=== PATIENT | female | born 1940 | race Caucasian/White ===

== ENCOUNTER 2021-12-15 20:57 | Inpatient (IN) | payer MEDICARE, MEDICAID, SELFPAY ==
[2021-12-15 20:58] VITALS: BP 155/52; PULSE 66; RESP 18; TEMP 36.9; O2SAT 97; BMI 19.5
[2021-12-15 22:08] LABS: Absolute Lymphocyte Count 2.51 X10^3/uL (0.83-4.51); Absolute Neutrophil Count 8.9 X10^3/uL (2.0-7.7); Basophil# 0.05 X10^3/uL; Basophil% 0.4 % (0-1); Eosinophil# 0.09 X10^3/uL; Eosinophils% 0.7 % (0-5); Hematocrit 34.1 % (37-47); Hemoglobin 11.2 g/dL (12.0-15.0); Lymphocyte # 2.51 X10^3/ul (0.83-4.51); Lymphocyte % 20.3 % (19-41); Mean Corp Hgb Conc 32.8 g/dL (32-36); Mean Corpuscular Hgb 31.4 pg (27.0-32.0); Mean Corpuscular Volume 95.5 fL (81-99); Mean Platelet Vol. 9.9 fl (6.2-12.0); Monocyte# 0.79 X10^3/uL; Monocyte% 6.4 % (0-10); NRBC Flagged by Analyzer 0 % (0-5); Neutrophil # 8.85 X10^3/uL (2.7-7.7); Neutrophil % 71.6 % (47-70); Platelet Count 293 K/mm3 (150-450); RBC Distribution Width CV 13.2 % (11.6-14.6); Red Blood Count 3.57 M/mm3 (4.2-5.4); White Blood Count 12.4 K/mm3 (4.4-11.0)
[2021-12-15 22:20] LABS: Anion Gap 10 (5-15); BUN 39 mg/dL (7-18); BUN/Creat Ratio 20.6 RATIO (10-20); Calcium,Total 9.4 mg/dL (8.5-10.1); Chloride 104 mmol/L (98-107); Creatinine, Serum 1.89 mg/dL (0.55-1.02); EST Glomerular Filtration Rate 27 mL/min (>60); Est Glom Filt Rate - Afr Amer 33 mL/min (>60); Estimated Creatinine Clearance 18.78 ml/min; Glucose 93 mg/dL (74-106); Potassium 4.6 mmol/L (3.5-5.1); Sodium Level 136 mmol/L (136-145)
[2021-12-15] MEDS: 0.9% Normal Saline 1,000 ML 1000 ML IV (22:30)
[2021-12-15 22:31] LABS: Mucous, Urine 0 SEEN /hpf (<or=2+)
[2021-12-15 22:34] VITALS: BP 139/51; PULSE 68; RESP 18; O2SAT 98
[2021-12-15 22:44] LABS: Color, Urine Yellow (Yellow); Glucose, Dipstick Normal (Normal); Ketone-Dipstick 15 mg/dl (Negative); Leukocyte Esterase-Dipstick 500 /ul (Negative); Nitrite-Dipstick Negative (Negative); Occult Blood-Urine 150 /ul (Negative); Protein-Dipstick 30 mg/dl (Negative); Urine Bilirubin Dipstick Negative (Negative); Urine Clarity Clear (Clear); Urine Urobilinogen Normal (Normal)
[2021-12-15 22:58] LABS: Bacteria RARE /hpf (None Seen); Red Blood Cells-Urine 5-10 SEEN /hpf (0-5); Squamous Epithelial Cells - UA 0-5 SEEN /hpf (5-10); White Blood Cells 25-50 SEEN /hpf (0-5)
[2021-12-15 22:59] LABS: Fine Granular Cast- Urine 0-5 SEEN /lpf (0-5); Hyaline Cast 5-10 SEEN /lpf (0-5)
[2021-12-15 23:00] VITALS: BP 143/58; PULSE 79; RESP 18; O2SAT 96
--- NOTE | 2021-12-15 23:03 | CT_ITS ---
EXAM: CT HEAD WITHOUT INTRAVENOUS CONTRAST CLINICAL INDICATION: Acute altered mental status TECHNIQUE: Multiple axial images were obtained of the head without intravenous contrast. This CT exam was performed using one or more of the following dose reduction techniques: automated exposure control, adjustment of the mA and/or kV according to patient size, and/or use of iterative reconstruction technique. This report was created using [employer] report generation technology. RADIATION DOSE: CTDIvol = 47.06 mGy, DLP = 872.68 mGy-cm. COMPARISON: None. FINDINGS: BRAIN AND EXTRA-AXIAL SPACES: Mild generalized atrophy. Mild low density bilaterally in the deep white matter. No intra- or extra-axial hemorrhage. No evidence of acute infarct. No intracranial mass or mass effect. There is preservation of the mccormack/white matter interface. Posterior fossa structures are unremarkable. No hydrocephalus. Basal cisterns are patent. BONES/JOINTS: Unremarkable. No discrete lytic or blastic abnormalities. SINUSES: Unremarkable as visualized. Clear. MASTOID AIR CELLS: Unremarkable. Clear. ORBITS: Visualized globes, extraocular muscles, optic nerves and retrobulbar fat appear unremarkable. CT/Brain/Head without Contrast IMPRESSION: Mild generalized atrophy. Mild low density bilaterally in the deep white matter. This likely represents small vessel ischemic changes in the deep white matter. Electronically Signed: Luciano Broderick MD at 0:18 EDT ,
[2021-12-15] MEDS: Ceftriaxone 1 GM/50 ML BAG IV (23:18)
--- NOTE | 2021-12-15 23:18 | EX.ED.DYSGE1 ---
HPI History of Present Illness Chief Complaint: Alt LOC Detail of Chief Complaint: Confusion daughter concerned UTI Informant: family and other (Nursing staff) Onset/Context/Timing Onset: - (Unknown) Context: - (Unknown) Timing: - (Unknown) Quality: Unable to determine Location: Not applicable Maximum Severity: Moderate Worsened by: Unknown Relieved by: Unknown Associated Symptoms Associated Symptoms: Unable to determine Narrative Narrative: Patient is an elderly woman with history of recurrent urinary tract infection who presents because of altered mental status. She is disoriented. Some of her answers are not related to what is asked. She believes it is April. She stated the year is 2022. When asked why she is here she stated I do not know . Based on medication patient has history of Parkinson's disease. GERD versus gastritis Prior similar symptoms: Yes (Due to urinary tract infection per daughter) Recent Illness/Hospitalization: No PFSH PFSH Medical History Atherosclerotic heart disease of [place] coronary artery with unspecified angina pectoris Constipation COVID-19 Depression Essential hypertension Gastro-esophageal reflux disease without esophagitis Hyperlipemia Parkinson disease Rheumatoid arthritis Home Medications acetaminophen 325 mg tablet (Tylenol) 650 mg PO Q4H PRN Pain 12/15/21 [History Last Taken Unknown] aspirin 81 mg tablet 81 mg PO DAILY 12/15/21 [History Last Taken Unknown] bisacodyl 5 mg rectal suppository mg MS 12/15/21 [History Last Taken Unknown] carbidopa 25 mg-levodopa 100 mg tablet 0.5 tab PO QHS 12/15/21 [History Last Taken Unknown] carbidopa 25 mg-levodopa 100 mg tablet 1 tab PO QHS 12/15/21 [History Last Taken Unknown] dextromethorphan-guaifenesin 10 mg-100 mg/5 mL oral syrup 10 ml PO Q4H PRN Cough 12/15/21 [History Last Taken Unknown] famotidine 20 mg tablet (Pepcid) 20 mg PO QHS 12/15/21 [History Last Taken Unknown] hydrocodone-acetaminophen 5-325mg 5mg-325mg 1 tab PO Q6H PRN Pain 12/15/21 [History Last Taken Unknown] mirtazapine 15 mg tablet 15 mg PO QHS 12/15/21 [History Last Taken Unknown] ondansetron HCl 4 mg tablet 4 mg PO Q4H PRN PRN Nausea 12/15/21 [History Last Taken Unknown] polyethylene glycol 3350 17 gram oral powder packet (Miralax) 17 g PO DAILY 12/15/21 [History Last Taken Unknown] saliva substitute combo no.9 (Biotene Dry Mouth Oral Rinse) 15 ml mucous membrane BID 12/15/21 [History Last Taken Unknown] sennosides 8.6 mg tablet (senna) 8.6 mg PO BID 12/15/21 [History Last Taken Unknown] Allergy/AdvReac Type Severity Reaction Status Date / Time adhesive tape Allergy PT UNSURE Verified 12/15/21 21:06 OF REACTION nickel Allergy PT UNSURE Verified 12/15/21 21:06 OF REACTION Penicillins Allergy PT UNSURE Verified 12/15/21 21:06 OF REACTION Family History unable to obtain unable to obtain Surgical History unable to obtain unable to obtain Social History (Updated 12/15/21 @ 23:[address] Ruben Ruiz MD) housing: [facility] Smoking Status: Former smoker substance use type: unknown ROS ROS ED Review of Systems ROS Unobtainable: due to mental status EXAM Physical Exam Const Vital Signs: 12/15/21 20:58 12/15/21 22:34 12/15/21 23:00 Temperature 98.4 F Temperature Source Oral Pulse Rate 66 68 79 Respiratory Rate 18 18 18 Blood Pressure 155/52 H 139/51 H 143/58 H Blood Pressure Mean 86 80 86 Pulse Ox 97 98 96 Oxygen Delivery Method Room Air Room Air Room Air 12/16/21 00:00 Temperature Temperature Source Pulse Rate 86 Respiratory Rate 18 Blood Pressure 125/71 H Blood Pressure Mean 89 Pulse Ox 97 Oxygen Delivery Method Room Air Positive well developed, cachectic, contractures and unkempt General Appearance ED: unkempt, well developed, cachectic, contractures and pallor; Negative for cyanotic, diaphoretic or NAD Nutritional Appearance: cachectic HEENT Reports dry mucous membranes HEENT Narrative: Head is atraumatic normocephalic. Ears normal. TMs normal. Nares patent. Uvula is midline. There is no erythema or exudate the posterior pharynx. Mouth ED: Yes dry mucous membranes Mouth: dry mucous membranes Eyes PERRL and EOMs intact bilaterally General Eye ED: Negative for pale conjunctiva or scleral icterus Neck no lymphadenopathy and no JVD Chest Wall inspection of chest normal and palpation of chest normal Resp normal respiratory effort and clear to auscultation bilaterally Cardio regular rate, regular rhythm, S1 normal heart sound, S2 normal heart sound and no murmurs GI normal to inspection, nondistended, normoactive bowel sounds, non-tender and non-distended; Negative for hepatosplenomegaly Back/Spine no CVA tenderness Back/Spine Narrative: Limited range of motion slight kyphosis Extremity Negative for normal to inspection Extremity Narrative: Contractures with lymphedema and bruising Neuro No oriented x3 and CN's II-XII intact bilaterally Neuro Narrative: Unable to assess for motor strength. Patient flinches or grimaces to pinprick upper and lower extremity Sensorium / Orientation: orientation impaired; Negative for alert Psych Negative for mental status grossly normal Appearance: unkempt Skin no rashes or lesions noted Skin Narrative: Bruising noted. There is no sacral decubiti. There is redness in the gluteal area and sacral area. General Skin Exam: pallor; Negative for jaundice MDM MDM MDM Narrative Medical decision making narrative: With prior history of UTI altered mental status concern patient may have urinary tract infection. Need to rule out metabolic cause clinically she appears dehydrated. Since patient not tachypneic, is not hypoxic and has normal auscultatory findings on lung exam x-ray was not obtained. Because of the persistent altered mental status and no significant metabolic abnormality and not a clear cut diagnosis of urinary tract infection a CT of the head was obtained to rule out intracranial process. At 0012 was informed by nurse that patient had a significant Addis vaginal/vulvar infection. Since patient cannot take p.o. meds because of her altered mental status and concern for aspiration she was given a dose of IV Diflucan. Lab Data Attestation: I reviewed the patient's lab results. Lab results narrative: White count is elevated with shift. There is no bandemia. BUN and creatinine are elevated at 39 and 1.89. There is no prior labs for comparison. GFR is 27. Urine reveals a specific gravity of 1.020 with positive ketones, occult blood leukoesterase and negative nitrites. There is evidence of pyuria with 25-50 WBCs and rare bacteria. The specimen was a straight cath and is not contaminated. There is hilar casts noted. Labs: Laboratory Results - last 24 hr 12/15/21 12/15/21 12/15/21 21:14 21:14 22:30 WBC 12.4 H RBC 3.57 L Hgb 11.2 L Hct 34.1 L MCV 95.5 MCH 31.4 MCHC 32.8 RDW Std Deviation 46.0 H RDW Coeff of Linda 13.2 Plt Count 293 MPV 9.9 Immature Gran % (Auto) 0.600 Neut % (Auto) 71.6 H Lymph % (Auto) 20.3 [place] % (Auto) 6.4 Eos % (Auto) 0.7 Baso % (Auto) 0.4 Absolute Neuts (auto) 8.9 H Absolute Lymphs (auto) 2.51 Nucleated RBC % 0 Sodium 136 Potassium 4.6 Chloride 104 Carbon Dioxide 22.0 Anion Gap 10 BUN 39 H Creatinine 1.89 H Estim Creat Clear Calc 18.78 Est GFR (MDRD) Af Amer 33 L Est GFR (MDRD) Non-Af 27 L BUN/Creatinine Ratio 20.6 H Glucose 93 Calcium 9.4 Urine Color Yellow Urine Clarity Clear Urine pH 5.0 Ur Specific [place] 1.020 Urine Protein 30 H Urine Glucose (UA) Normal Urine Ketones 15 H Urine Occult Blood 150 H Urine Nitrite Negative Urine Bilirubin Negative Urine Urobilinogen Normal Ur Leukocyte Esterase 500 H Urine RBC 5-10 SEEN Urine WBC 25-50 SEEN Ur Squamous Epith Cells 0-5 SEEN Urine Bacteria RARE Hyaline Casts 5-10 SEEN Fine Granular Casts 0-5 SEEN Urine Mucus 0 SEEN Radiography Diagnostic Testing: Clinical Impression(s) from Imaging Studies Brain CT 12/15/21 23:03 IMPRESSION: Mild generalized atrophy. Mild low density bilaterally in the deep white matter. This likely represents small vessel ischemic changes in the deep white matter. Electronically Signed: Luciano Broderick MD at 0:18 EDT , CT of the head per my read reveals small vessel white matter disease. There is no acute stroke or intracranial bleed. Awaiting formal read by radiologist. The report by radiologist was read. Agrees there is no abnormality that would explain patient's altered mental status. Discharge Plan Dx/Rx/DC Orders Clinical Impression: Encephalopathy acute, Acute UTI, Addis infection Disposition Disposition: Acute Care Hospital [facility]
[2021-12-16] VITALS (9 sets, daily range): BP systolic 111–153; BP diastolic 51–85; PULSE 59–86; RESP 16–20; TEMP 36.2–37.2; O2SAT 97–100; BMI 17.8
--- NOTE | 2021-12-16 01:09 | PCM.HP.STD ---
HPI - General General Date of Admission: 12/16/21 Date of Service: 12/16/21 Chief Complaint: Altered mental status HPI Narrative KEYSHAWN CERVANTES, is a 80 F with a significant history of Parkinson disease who lives at a long term and was brought to the emergency department because of altered mental status. History was taken from emergency department doctor and from patient's daughter (Vidya Sanchez [phone] who is a nurse) because patient is confused. However patient could states that she is at a hospital because of UTI. Reportedly patient has had multiple UTIs and the facilities that she lives at was planning on starting her on a prophylactic Macrobid. Reportedly patient has had progressively worsening altered mental status for the past 4 to 5 days and per her daughter when patient gets UTI she gets confused. 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 [facility] Medical History Atherosclerotic heart disease of [place] coronary artery with unspecified angina pectoris Constipation COVID-19 Depression Essential hypertension Gastro-esophageal reflux disease without esophagitis Hyperlipemia Parkinson disease Rheumatoid arthritis Home Medications acetaminophen 325 mg tablet (Tylenol) 650 mg PO Q4H PRN Pain 12/15/21 [History Last Taken Unknown] aspirin 81 mg tablet 81 mg PO DAILY heart health 12/15/21 [History Last Taken Unknown] bisacodyl 5 mg rectal suppository 5 mg [place] DAILY PRN Constipation 12/15/21 [History Last Taken Unknown] carbidopa 25 mg-levodopa 100 mg tablet 0.5 tab PO QHS parkinson's 12/15/21 [History Last Taken Unknown] carbidopa 25 mg-levodopa 100 mg tablet 1 tab PO 1300 parkinson's 12/15/21 [History Last Taken Unknown] dextromethorphan-guaifenesin 10 mg-100 mg/5 mL oral syrup 10 ml PO Q4H PRN Cough 12/15/21 [History Last Taken Unknown] famotidine 20 mg tablet (Pepcid) 20 mg PO QHS GERD 12/15/21 [History Last Taken Unknown] hydrocodone-acetaminophen 5-325mg 5mg-325mg 1 tab PO Q6H PRN Pain 12/15/21 [History Last Taken Unknown] mirtazapine 15 mg tablet 22.5 mg PO QHS depression 12/15/21 [History Last Taken Unknown] ondansetron HCl 4 mg tablet 4 mg PO Q4H PRN PRN Nausea 12/15/21 [History Last Taken Unknown] polyethylene glycol 3350 17 gram oral powder packet (Miralax) 17 g PO DAILY constipation 12/15/21 [History Last Taken Unknown] saliva substitute combo no.9 (Biotene Dry Mouth Oral Rinse) 15 ml mucous membrane BID dry mouth 12/15/21 [History Last Taken Unknown] sennosides 8.6 mg tablet (senna) 8.6 mg PO BID constipation 12/15/21 [History Last Taken Unknown] Lactobacillus acidophilus 1,000 mmu cells PO BID GERD 12/16/21 [History Last Taken Unknown] carbidopa 25 mg-levodopa 100 mg tablet 1 tab PO 1700 parkinson's 12/16/21 [History Last Taken Unknown] carbidopa 25 mg-levodopa 100 mg tablet 2 tab PO 0900 parkinsons 12/16/21 [History Last Taken Unknown] multivitamin 1 tab PO DAILY supplement 12/16/21 [History Last Taken Unknown] Allergy/AdvReac Type Severity Reaction Status Date / Time adhesive tape Allergy PT UNSURE Verified 12/15/21 21:06 OF REACTION nickel Allergy PT UNSURE Verified 12/15/21 21:06 OF REACTION Penicillins Allergy PT UNSURE Verified 12/15/21 21:06 OF REACTION Family History Other Hearing loss Rheumatoid arthritis Family History unable to obtain Surgical History H/O mastectomy History of ear surgery History of knee replacement Surgical History unable to obtain Social History housing: long term Smoking Status: Former smoker substance use type: unknown ROS ROS Narrative Pertinent positives and pertinent negatives that could be provided by patient's family is as noted in HPI. All other systems were reviewed patient's family did not know or they were negative. Vital Signs Vital Signs Vital Signs: 12/15/21 20:58 12/15/21 22:34 12/15/21 23:00 Temperature 98.4 F Temperature Source Oral Pulse Rate 66 68 79 Respiratory Rate 18 18 18 Blood Pressure 155/52 H 139/51 H 143/58 H Blood Pressure Mean 86 80 86 Pulse Ox 97 98 96 Oxygen Delivery Method Room Air Room Air Room Air 12/16/21 00:00 Temperature Temperature Source Pulse Rate 86 Respiratory Rate 18 Blood Pressure 125/71 H Blood Pressure Mean 89 Pulse Ox 97 Oxygen Delivery Method Room Air Weight Weight: 50.1 kg Body Mass Index (BMI) 19.5 Physical Exam Narrative Physical exam: General: Elderly frail looking female Head: Normocephalic, atraumatic, no tenderness Eyes: Does not fully open eyes for examination ENT, no trauma, moist mucous membranes, no rhinorrhea Neck: Nontender, full range of motion CVS: Regular rate and rhythm. S1-S2 present. No murmur, gallop or rub. Respiratory : clear to auscultation bilaterally, chest wall nontender, no wheezing Abdomen: Soft, nontender, nondistended, normal bowel sounds, no masses : Erythematous groin area Back: Nontender, no CVA tenderness, no midline spinal tenderness Extremities: Nontender full range of motion, no trauma Skin: Erythematous sacrococcygeal area. Normal color Neuro: Alert, knows the year. Patient stated that it was November instead of December. Murmuring. Psychiatry: Normal mood. Normal affect. Results Lab / Micro Data Result Diagrams: 12/15/21 21:14 12/15/21 21:14 Labs: Laboratory Results - last 24 hr 12/15/21 21:14: WBC 12.4 H, RBC 3.57 L, Hgb 11.2 L, Hct 34.1 L, MCV 95.5, MCH 31.4, MCHC 32.8, RDW Std Deviation 46.0 H, RDW Coeff of Linda 13.2, Plt Count 293, MPV 9.9, Immature Gran % (Auto) 0.600, Neut % (Auto) 71.6 H, Lymph % (Auto) 20.3, [place] % (Auto) 6.4, Eos % (Auto) 0.7, Baso % (Auto) 0.4, Absolute Neuts (auto) 8.9 H, Absolute Lymphs (auto) 2.51, Nucleated RBC % 0 12/15/21 21:14: Sodium 136, Potassium 4.6, Chloride 104, Carbon Dioxide 22.0, Anion Gap 10, BUN 39 H, Creatinine 1.89 H, Estim Creat Clear Calc 18.78, Est GFR (MDRD) Af Amer 33 L, Est GFR (MDRD) Non-Af 27 L, BUN/Creatinine Ratio 20.6 H, Glucose 93, Calcium 9.4 12/15/21 22:30: Urine Color Yellow, Urine Clarity Clear, Urine pH 5.0, Ur Specific [place] 1.020, Urine Protein 30 H, Urine Glucose (UA) Normal, Urine Ketones 15 H, Urine Occult Blood 150 H, Urine Nitrite Negative, Urine Bilirubin Negative, Urine Urobilinogen Normal, Ur Leukocyte Esterase 500 H, Urine RBC 5-10 SEEN, Urine WBC 25-50 SEEN, Ur Squamous Epith Cells 0-5 SEEN, Urine Bacteria RARE, Hyaline Casts 5-10 SEEN, Fine Granular Casts 0-5 SEEN, Urine Mucus 0 SEEN Radiology Impression Brain CT 12/15/21 23:03 IMPRESSION: Mild generalized atrophy. Mild low density bilaterally in the deep white matter. This likely represents small vessel ischemic changes in the deep white matter. Electronically Signed: Luciano Broderick MD at 0:18 EDT , Assessment & Plan Assessment/Plan (1) Encephalopathy acute: (2) Acute UTI: (3) Addis infection: PLAN: Plan Acute infectious encephalopathy from UTI Brain CT was visualized and independently interpreted. No acute process seen. I agree with radiologist interpretation. Urinalysis reviewed showed urine occult blood; urine leukocyte esterase of 500; reevaluate urine bacteria. Urine WBC of 25-50; normal squamous epithelial cells. CBC showed a white count of 12.4 with neutrophilia of 71.6%. Trend CBC. No other SIRS criteria except leukocytosis as above. qSOFA of 1 (encephalopathy); sepsis ruled out. Hold all p.o. home medication secondary to encephalopathy. Home p.o. Pepcid changed to IV. With reported MRSA in home urine we will start patient on vancomycin. Unclear why reportedly patient was on Invanz at the long term. Order to obtain records of urine culture and blood culture which reportedly was ordered at the long term. Follow urine culture ordered in the emergency department. JAVED on CKD stage IIIa. Her creatinine on presentation was 1.89. BUN is 39. BUN over creatinine is 20.6. Likely prerenal Review of community records shows that her creatinine on 03/17/2021 was 1.4. BUN was 30. GFR calculated was 36. Also review of Record showed that her creatinine on 03/18/2021 was 1.0. BUN was 36. Calculated GFR was 53. Further review of community records show that on 03/19/2021 her creatinine was 1.0. BUN was 30 and GFR calculated was 53. IV hydration ordered. Avoid nephrotoxins. Trend BMP Addis infection of groin area Diflucan IV given the emergency department. Nystatin powder ordered. Charges/Coding Visit Charges Inpatient E&M: 17965 Init Hosp L3
--- NOTE | 2021-12-16 02:39 | NURSING ---
[facility]. Also clarified Sinemet doses.
[2021-12-16] MEDS: Menthol/Lanolin/Calamine/Znox 113 GM Tube 1 APPLIC TOPICAL ×3 (02:45→20:32)
[2021-12-16] MEDS: Nystatin Powder 15gm Bottle 1 APPLIC TOPICAL ×3 (02:45→20:32)
--- NOTE | 2021-12-16 03:07 | PCM.RX.CS ---
Consult Pharmacy has been consulted to manage selected antiobiotic: Vancomycin Type of Consult: New start Prior Doses of Antibiotics Received/Current Regimen: Medications Vancomycin HCl 750 mg/ Sodium (Chloride) 265 mls @ 250 mls/hr IV X1 ONE Stop: 12/16/21 03:33 Last Admin: 12/16/21 02:45 Dose: 250 mls/hr Labs: Sodium 136 mmol/L (136-145) 12/15/21 21:14 Potassium 4.6 mmol/L (3.5-5.1) 12/15/21 21:14 Chloride 104 mmol/L (98-107) 12/15/21 21:14 Carbon Dioxide 22.0 mmol/L (21.0-32.0) 12/15/21 21:14 Anion Gap 10 (5-15) 12/15/21 21:14 BUN 39 mg/dL (7-18) H 12/15/21 21:14 Creatinine 1.89 mg/dL (0.55-1.02) H 12/15/21 21:14 Est GFR (MDRD) Af Amer 33 mL/min (>60) L 12/15/21 21:14 Est GFR (MDRD) Non-Af 27 mL/min (>60) L 12/15/21 21:14 BUN/Creatinine Ratio 20.6 RATIO (10-20) H 12/15/21 21:14 Glucose 93 mg/dL (74-106) 12/15/21 21:14 Weight used for dosin.1 kg Estimated Creatinine Clearance: 18.8 Goal Trough: 10-15 mcg/mL Pharmacy Plan for Drug Dosing: An initial vancomycin dose of 750mg was given 12/16/21. Since current CrCl=18.8, a random level will be drawn with am labs 12/17, and further dosing determined from that result, per protocol. Pharmacy Service will continue to monitor and adjust dosing as required. Follow-Up Labs: Trough Vancomycin - random Labs to be done on [date and time ordered]: 12/17/21 @0600 random level
[2021-12-16] MEDS: 0.9% Normal Saline 1,000 ML 75 ML IV (05:14)
[2021-12-16 05:43] LABS: Absolute Lymphocyte Count 2.64 X10^3/uL (0.83-4.51); Absolute Neutrophil Count 7.7 X10^3/uL (2.0-7.7); Basophil# 0.07 X10^3/uL; Basophil% 0.6 % (0-1); Eosinophil# 0.17 X10^3/uL; Eosinophils% 1.5 % (0-5); Hematocrit 29.8 % (37-47); Hemoglobin 9.9 g/dL (12.0-15.0); Lymphocyte # 2.64 X10^3/ul (0.83-4.51); Mean Corp Hgb Conc 33.2 g/dL (32-36); Mean Corpuscular Hgb 30.7 pg (27.0-32.0); Mean Corpuscular Volume 92.5 fL (81-99); Mean Platelet Vol. 9.4 fl (6.2-12.0); NRBC Flagged by Analyzer 0 % (0-5); Neutrophil # 7.71 X10^3/uL (2.7-7.7); Neutrophil % 67.3 % (47-70); Platelet Count 266 K/mm3 (150-450); RBC Distribution Width CV 13.2 % (11.6-14.6); RBC Distribution Width SD 45.1 fl (35.1-43.9); Red Blood Count 3.22 M/mm3 (4.2-5.4); White Blood Count 11.5 K/mm3 (4.4-11.0)
[2021-12-16 06:18] LABS: Vitamin B12 552 pg/mL (211-911)
[2021-12-16 06:42] LABS: AST(SGOT) 32 U/L (15-37); Alanine Aminotransfer ALT/SGPT < 6 U/L (13-56); Albumin, Serum 3.1 g/dL (3.2-5.0); Alkaline Phosphatase 76 U/L (45-117); Anion Gap 10 (5-15); BUN 29 mg/dL (7-18); BUN/Creat Ratio 22.7 RATIO (10-20); Calcium,Total 8.1 mg/dL (8.5-10.1); Chloride 109 mmol/L (98-107); Creatinine, Serum 1.28 mg/dL (0.55-1.02); EST Glomerular Filtration Rate 43 mL/min (>60); Est Glom Filt Rate - Afr Amer 52 mL/min (>60); Estimated Creatinine Clearance 25.23 ml/min; Globulin 3.1 g/dL (2.2-4.2); Glucose 62 mg/dL (74-106); Protein, Total 6.2 g/dL (6.4-8.2); Sodium Level 137 mmol/L (136-145); Thyroid Stim Hormone (TSH) 3.91 uIU/mL (0.358-3.74)
[2021-12-16] MEDS: Heparin Injection (Vial) 5,000 UNIT/ML VIAL 5000 UNIT SC ×2 (09:07→20:34)
[2021-12-16] MEDS: Famotidine 200 MG/20 ML MDV 20 MG in 0.9% Normal Saline (Pres. free 8 ML 300 MG IV (09:07)
--- NOTE | 2021-12-16 10:30 | CASEMGMT ---
Discharge Head Shipper Charlene Mixon/[employer] Developer faxed over update on patient to Dick Buchanan. Charlene Ca Discharge Head Shipper
--- NOTE | 2021-12-16 10:35 | PCM.PN.HOSP ---
Subjective Subjective 80-year-old female, resident in a [facility], with history of Parkinson's disease who was admitted this morning with altered mental status. Patient was seen and examined in the morning and was lethargic. She was reportedly very alert. She had not received any sedating medication. Vital reviewed and are stable. Labs reviewed -noted hypoglycemia of 62. Patient subsequently ate her lunch. Patient received IV ceftriaxone in the ED; was continued on IV vancomycin Will obtain records from the [facility], will add IV ceftriaxone until the records from [facility] I evaluated Objective Data Objective Data Vital Signs: Vital Signs Temp Pulse Resp BP Pulse Ox O2 Del Method 99 F 66 16 111/82 H 100 Room Air 12/16/21 07:45 12/16/21 07:45 12/16/21 07:45 12/16/21 07:45 12/16/21 07:45 12/16/21 10:32 Oxygen Delivery Method Room Air Weight: 45.6 kg Body Mass Index (BMI) 17.8 Intake & Output: Intake and Output for Last 24 Hours 12/14/21 12/15/21 12/16/21 23:59 23:59 23:59 Intake Total 1425 / 1425 Balance 1425 / 1425 Lab / Micro Data Result Diagrams: 12/16/21 05:12 12/16/21 05:12 Labs: Laboratory Results - last 24 hr 12/15/21 21:14: WBC 12.4 H, RBC 3.57 L, Hgb 11.2 L, Hct 34.1 L, MCV 95.5, MCH 31.4, MCHC 32.8, RDW Std Deviation 46.0 H, RDW Coeff of Linda 13.2, Plt Count 293, MPV 9.9, Immature Gran % (Auto) 0.600, Neut % (Auto) 71.6 H, Lymph % (Auto) 20.3, [place] % (Auto) 6.4, Eos % (Auto) 0.7, Baso % (Auto) 0.4, Absolute Neuts (auto) 8.9 H, Absolute Lymphs (auto) 2.51, Nucleated RBC % 0 12/15/21 21:14: Sodium 136, Potassium 4.6, Chloride 104, Carbon Dioxide 22.0, Anion Gap 10, BUN 39 H, Creatinine 1.89 H, Estim Creat Clear Calc 18.78, Est GFR (MDRD) Af Amer 33 L, Est GFR (MDRD) Non-Af 27 L, BUN/Creatinine Ratio 20.6 H, Glucose 93, Calcium 9.4 12/15/21 22:30: Urine Color Yellow, Urine Clarity Clear, Urine pH 5.0, Ur Specific [place] 1.020, Urine Protein 30 H, Urine Glucose (UA) Normal, Urine Ketones 15 H, Urine Occult Blood 150 H, Urine Nitrite Negative, Urine Bilirubin Negative, Urine Urobilinogen Normal, Ur Leukocyte Esterase 500 H, Urine RBC 5-10 SEEN, Urine WBC 25-50 SEEN, Ur Squamous Epith Cells 0-5 SEEN, Urine Bacteria RARE, Hyaline Casts 5-10 SEEN, Fine Granular Casts 0-5 SEEN, Urine Mucus 0 SEEN 12/16/21 05:12: WBC 11.5 H, RBC 3.22 L, Hgb 9.9 L, Hct 29.8 L, MCV 92.5, MCH 30.7, MCHC 33.2, RDW Std Deviation 45.1 H, RDW Coeff of [place] 13.2, Plt Count 266, MPV 9.4, Immature Gran % (Auto) 0.600, Neut % (Auto) 67.3, Lymph % (Auto) 23.0, [place] % (Auto) 7.0, Eos % (Auto) 1.5, Baso % (Auto) 0.6, Absolute Neuts (auto) 7.7, Absolute Lymphs (auto) 2.64, Nucleated RBC % 0 12/16/21 05:12: Sodium 137, Potassium 4.0, Chloride 109 H, Carbon Dioxide 18.0 L, Anion Gap 10, BUN 29 H, Creatinine 1.28 H, Estim Creat Clear Calc 25.23, Est GFR (MDRD) Af Amer 52 L, Est GFR (MDRD) Non-Af 43 L, BUN/Creatinine Ratio 22.7 H, Glucose 62 L, Calcium 8.1 L, Total Bilirubin 0.40, AST 32, ALT < 6 L, Alkaline Phosphatase 76, Total Protein 6.2 L, Albumin 3.1 L, Globulin 3.1, Albumin/Globulin Ratio 1.0, TSH 3.91 H 12/16/21 05:12: Vitamin B12 552 Radiography Diagnostic Testing: Radiology Impression Brain CT 12/15/21 23:03 IMPRESSION: Mild generalized atrophy. Mild low density bilaterally in the deep white matter. This likely represents small vessel ischemic changes in the deep white matter. Electronically Signed: Luciano Broderick MD at 0:18 EDT ,
--- NOTE | 2021-12-16 10:46 | CASEMGMT ---
Social Work [facility]. 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 Phone call to pt son Harry who states pt will return to [facility] at discharge. Per physician, pt not ready for discharge today but possible tomorrow. Dick Buchanan notified and clinical updates to be faxed. Plan: Dick Buchanan, intermediate Level of Care, When medically ready CHAIM Leblanc
[2021-12-16] MEDS: Carbidopa/Levodopa 25/100 Tablet PO ×4 (10:49→20:33)
[2021-12-16] MEDS: Aspirin E.C. 81 MG Tablet PO (10:49)
[2021-12-16 11:28] LABS: T4 Free Direct 1.12 ng/dL (0.76-1.46)
--- NOTE | 2021-12-16 13:11 | NURSING ---
call placed to Dick Buchanan for recent blood work and urine cultures
[2021-12-16 13:41] LABS: Bedside Glucose 87 mg/dL (74-106)
[2021-12-16] MEDS: Dextrose 5%/0.9% NaCl 1,000 ML 75 ML IV (14:24)
[2021-12-16 15:04] LABS: Magnesium 1.7 mg/dL (1.6-2.6); Phosphorus 3.3 mg/dL (2.5-4.9)
[2021-12-16 16:25] LABS: Bedside Glucose 95 mg/dL (74-106)
[2021-12-16] MEDS: Mirtazapine 15 MG Tablet 22.5 MG PO (20:32)
[2021-12-17] VITALS (8 sets, daily range): BP systolic 96–176; BP diastolic 46–70; PULSE 59–77; RESP 16–18; TEMP 36.3–36.9; O2SAT 97–100
[2021-12-17] MEDS: Menthol/Lanolin/Calamine/Znox 113 GM Tube 1 APPLIC TOPICAL ×3 (03:13→22:13)
[2021-12-17] MEDS: Dextrose 5%/0.9% NaCl 1,000 ML 75 ML IV ×2 (03:13→17:03)
[2021-12-17] MEDS: Nystatin Powder 15gm Bottle 1 APPLIC TOPICAL ×3 (03:14→22:14)
[2021-12-17 06:49] LABS: Vancomycin, Random Level 6.9 ug/mL (0.0-15.0)
--- NOTE | 2021-12-17 06:58 | PCM.RX.CS ---
Consult Pharmacy has been consulted to manage selected antiobiotic: Vancomycin Type of Consult: Follow-up Suspected Infection: Other Prior Doses of Antibiotics Received/Current Regimen: Medications Vancomycin HCl () 500 mg in 100 mls @ 100 mls/hr IV Q24H SHARI Labs: Sodium 137 mmol/L (136-145) 12/16/21 05:12 Potassium 4.0 mmol/L (3.5-5.1) 12/16/21 05:12 Chloride 109 mmol/L (98-107) H 12/16/21 05:12 Carbon Dioxide 18.0 mmol/L (21.0-32.0) L 12/16/21 05:12 Anion Gap 10 (5-15) 12/16/21 05:12 BUN 29 mg/dL (7-18) H 12/16/21 05:12 Creatinine 1.28 mg/dL (0.55-1.02) H 12/16/21 05:12 Est GFR (MDRD) Af Amer 52 mL/min (>60) L 12/16/21 05:12 Est GFR (MDRD) Non-Af 43 mL/min (>60) L 12/16/21 05:12 BUN/Creatinine Ratio 22.7 RATIO (10-20) H 12/16/21 05:12 Glucose 62 mg/dL (74-106) L 12/16/21 05:12 Random Vancomycin 6.9 ug/mL (0.0-15.0) 12/17/21 06:00 Weight used for dosin.6 kg Estimated Creatinine Clearance: 25 Goal Trough: 10-15 mcg/mL Pharmacy Plan for Drug Dosing: Vancomycin level was 6.9. With CrCl now at 25, OK to begin dosing at 500mg q24h. Will draw a trough level prior to 3rd dose. Pharmacy Service will continue to monitor and adjust dosing as required. Follow-Up Labs: Trough Vancomycin Labs to be done on [date and time ordered]: 12/19/21 @5312
[2021-12-17] MEDS: Vancomycin IV 500 MG/100 ML BAG 100 MG IV (07:42)
[2021-12-17 08:06] LABS: Absolute Lymphocyte Count 2.26 X10^3/uL (0.83-4.51); Absolute Neutrophil Count 5.6 X10^3/uL (2.0-7.7); Basophil# 0.06 X10^3/uL; Basophil% 0.7 % (0-1); Eosinophil# 0.29 X10^3/uL; Eosinophils% 3.3 % (0-5); Hematocrit 33.2 % (37-47); Hemoglobin 10.9 g/dL (12.0-15.0); Lymphocyte # 2.26 X10^3/ul (0.83-4.51); Lymphocyte % 25.8 % (19-41); Mean Corp Hgb Conc 32.8 g/dL (32-36); Mean Corpuscular Hgb 31.5 pg (27.0-32.0); Mean Platelet Vol. 9.7 fl (6.2-12.0); Monocyte# 0.56 X10^3/uL; Monocyte% 6.4 % (0-10); NRBC Flagged by Analyzer 0 % (0-5); Neutrophil # 5.56 X10^3/uL (2.7-7.7); Neutrophil % 63.5 % (47-70); Platelet Count 293 K/mm3 (150-450); RBC Distribution Width CV 13.7 % (11.6-14.6); Red Blood Count 3.46 M/mm3 (4.2-5.4); White Blood Count 8.8 K/mm3 (4.4-11.0)
[2021-12-17 08:42] LABS: ALB/GLOB Ratio 0.8 RATIO (0.9-2.4); AST(SGOT) 31 U/L (15-37); Alanine Aminotransfer ALT/SGPT 8 U/L (13-56); Albumin, Serum 2.7 g/dL (3.2-5.0); Alkaline Phosphatase 76 U/L (45-117); Anion Gap 8 (5-15); BUN 17 mg/dL (7-18); BUN/Creat Ratio 19.5 RATIO (10-20); Calcium,Total 8.4 mg/dL (8.5-10.1); Chloride 115 mmol/L (98-107); Creatinine, Serum 0.87 mg/dL (0.55-1.02); EST Glomerular Filtration Rate 66 mL/min (>60); Est Glom Filt Rate - Afr Amer 80 mL/min (>60); Estimated Creatinine Clearance 37.13 ml/min; Globulin 3.3 g/dL (2.2-4.2); Glucose 121 mg/dL (74-106); Potassium 3.9 mmol/L (3.5-5.1); Sodium Level 141 mmol/L (136-145)
[2021-12-17] MEDS: Carbidopa/Levodopa 25/100 Tablet PO ×4 (08:49→22:12)
[2021-12-17] MEDS: Multivitamins,Therapeutic Tablet 1 TABLET PO (08:49)
[2021-12-17] MEDS: Aspirin E.C. 81 MG Tablet PO (08:50)
[2021-12-17] MEDS: Acetaminophen 325 MG Tablet 650 MG PO (08:54)
[2021-12-17] MEDS: Heparin Injection (Vial) 5,000 UNIT/ML VIAL 5000 UNIT SC ×2 (08:56→22:31)
[2021-12-17] MEDS: Famotidine 200 MG/20 ML MDV 20 MG in 0.9% Normal Saline (Pres. free 8 ML 300 MG IV (08:56)
--- NOTE | 2021-12-17 09:59 | PN.HOSP_ITS ---
Subjective Subjective Follow-up on acute infectious encephalopathy: Patient was seen and examined. She is much awake today. She denied any new complaints. Objective Data Objective Data Vital Signs: Vital Signs Temp Pulse Resp BP Pulse Ox O2 Del Method 98 F 61 16 176/68 H 99 Room Air 12/17/21 08:31 12/17/21 08:31 12/17/21 08:31 12/17/21 08:31 12/17/21 08:31 12/17/21 08:31 Oxygen Delivery Method Room Air Weight: 45.6 kg Body Mass Index (BMI) 17.8 Intake & Output: Intake and Output for Last 24 Hours 12/15/21 12/16/21 12/17/21 23:59 23:59 23:59 Intake Total 2978.75 / 2978.75 911.25 / 911.25 Output Total 250 / 250 1150 / 1150 Balance 2728.75 / 2728.75 -238.75 / -238.75 Medical Nutrition Assessment Dietitian: Malnutrition Criteria Met Start: 12/16/21 13:08 Freq: Status: Active Protocol: Document 12/16/21 13:09 AG (Rec: 12/16/21 13:09 [id number]) Nutrition Malnutrition Evidence of Malnutrition Exists Yes Malnutrition (severe): Acute Illness/Injury Evidenced By Suboptimal Energy Intake ( Severe),Weight Loss (Severe), Physical Changes (Mild) Clinical Problem Acute Disease or Injury Related Malnutrition Etiology severe, acute malnutrition related to altered mental status Signs/Symptoms as evidenced by unintentional wt loss of 9.5#/8.6%; estimated PO intake meeting < 50% of estimated energy needs x 5 days; mild muscle wasting/ fat loss in upper extremities, temporal, orbital, and clavicle areas per physical exam; BMI 17.8 Status Active Problem Recommendation Dietitian Recommendations/Changes regular diet given evidence of malnutrition; ensure enlive 120mL 4x/day w/ medpass for additional calories/protein if consumed. Lab / Micro Data Result Diagrams: 12/17/21 06:00 12/17/21 06:00 Labs: Laboratory Results - last 24 hr 12/16/21 05:12: Free T4 1.12 12/16/21 05:12: Phosphorus 3.3, Magnesium 1.7 12/16/21 13:09: POC Glucose 87 12/16/21 13:25: Ammonia 23.0 12/16/21 16:07: POC Glucose 95 12/17/21 06:00: Random Vancomycin 6.9 12/17/21 06:00: WBC 8.8, RBC 3.46 L, Hgb 10.9 L, Hct 33.2 L, MCV 96.0, MCH 31.5, MCHC 32.8, RDW Std Deviation 48.0 H, RDW Coeff of Linda 13.7, Plt Count 293, MPV 9.7, Immature Gran % (Auto) 0.300, Neut % (Auto) 63.5, Lymph % (Auto) 25.8, [place] % (Auto) 6.4, Eos % (Auto) 3.3, Baso % (Auto) 0.7, Absolute Neuts (auto) 5.6, Absolute Lymphs (auto) 2.26, Nucleated RBC % 0 12/17/21 06:00: Sodium 141, Potassium 3.9, Chloride 115 H, Carbon Dioxide 18.0 L , Anion Gap 8, BUN 17, Creatinine 0.87, Estim Creat Clear Calc 37.13, Est GFR (MDRD) Af Amer 80, Est GFR (MDRD) Non-Af 66, BUN/Creatinine Ratio 19.5, Glucose 121 H, Calcium 8.4 L, Total Bilirubin 0.20, AST 31, ALT 8 L, Alkaline Phosphatase 76, Total Protein 6.0 L, Albumin 2.7 L, Globulin 3.3, Albumin/Globulin Ratio 0.8 L Micro: Microbiology 12/15/21 22:30 Urine, Catheterized Urine Culture - Preliminary Culture exhibits no growth. Physical Exam Narrative Physical exam: General: Alert, Oriented x3, Cooperative, cachectic, frail HEENT: Atraumatic Oral: Moist Mucosa Neck: Supple Lungs: Diminished to auscultation Cardiovascular: HS I+II, regular, no murmurs Abdomen: Bowel Sounds Present, Soft, Non Tender Extremities: No edema Skin: No rashes, No breakdown Neurological: Grossly intact Psych/Mental Status: Appropriate Assessment & Plan Assessment/Plan (1) Encephalopathy acute: (2) Acute UTI: (3) Addis infection: PLAN: Plan 1. Acute infectious encephalopathy secondary to acute UTI, improved Patient is a care home resident, history of recurrent UTI, recent urine cultures grew MRSA, Proteus Repeat urine cultures pending, started on IV vancomycin and ceftriaxone Continue same pending urine culture 2. JAVED on CKD stage IIIa, resolved, creatinine is currently 0.87, admitted creatinine 1.89 3. Severe protein calorie malnutrition, nutrition consulted, continue on supplement 4. Candidal intertriginous infection, continue nystatin powder 5. Parkinson's disease, continue on Sinemet 6. DVT PPx- Heparin SC Charges/Coding Visit Charges Inpatient E&M: 32829 Subs Hosp L2
[2021-12-17] MEDS: Mirtazapine 15 MG Tablet 22.5 MG PO (22:12)
[2021-12-17] MEDS: 0.9% Saline Lock 10 ML Syringe IV (22:14)
[2021-12-17] MEDS: hydrALAZINE 20 MG/ML Vial 5 MG IV (22:14)
[2021-12-18] VITALS (9 sets, daily range): BP systolic 134–180; BP diastolic 59–83; PULSE 68–76; RESP 16–18; TEMP 36.7–37.4; O2SAT 96–100
[2021-12-18] MEDS: Nystatin Powder 15gm Bottle 1 APPLIC TOPICAL ×3 (05:24→22:24)
[2021-12-18] MEDS: Menthol/Lanolin/Calamine/Znox 113 GM Tube 1 APPLIC TOPICAL ×3 (05:24→20:05)
[2021-12-18] MEDS: Dextrose 5%/0.9% NaCl 1,000 ML 75 ML IV (05:25)
[2021-12-18] MEDS: Acetaminophen 325 MG Tablet 650 MG PO (06:44)
[2021-12-18 06:59] LABS: Absolute Lymphocyte Count 3.37 X10^3/uL (0.83-4.51); Basophil# 0.03 X10^3/uL; Basophil% 0.4 % (0-1); Eosinophil# 0.33 X10^3/uL; Eosinophils% 3.9 % (0-5); Hematocrit 30.3 % (37-47); Lymphocyte # 3.37 X10^3/ul (0.83-4.51); Lymphocyte % 40.3 % (19-41); Mean Corpuscular Volume 93.8 fL (81-99); Mean Platelet Vol. 9.3 fl (6.2-12.0); Monocyte% 7.2 % (0-10); NRBC Flagged by Analyzer 0 % (0-5); Neutrophil # 3.99 X10^3/uL (2.7-7.7); Neutrophil % 47.7 % (47-70); Platelet Count 274 K/mm3 (150-450); RBC Distribution Width CV 13.9 % (11.6-14.6); RBC Distribution Width SD 47.1 fl (35.1-43.9); Red Blood Count 3.23 M/mm3 (4.2-5.4); White Blood Count 8.4 K/mm3 (4.4-11.0)
[2021-12-18 07:21] LABS: ALB/GLOB Ratio 0.8 RATIO (0.9-2.4); AST(SGOT) 21 U/L (15-37); Alanine Aminotransfer ALT/SGPT 9 U/L (13-56); Albumin, Serum 2.4 g/dL (3.2-5.0); Alkaline Phosphatase 69 U/L (45-117); Anion Gap 5 (5-15); BUN 12 mg/dL (7-18); BUN/Creat Ratio 15.5 RATIO (10-20); Calcium,Total 8.1 mg/dL (8.5-10.1); Chloride 115 mmol/L (98-107); Creatinine, Serum 0.77 mg/dL (0.55-1.02); EST Glomerular Filtration Rate 76 mL/min (>60); Est Glom Filt Rate - Afr Amer 92 mL/min (>60); Glucose 115 mg/dL (74-106); Potassium 3.7 mmol/L (3.5-5.1); Protein, Total 5.4 g/dL (6.4-8.2); Sodium Level 143 mmol/L (136-145)
--- NOTE | 2021-12-18 08:09 | PN.HOSP_ITS ---
Subjective Subjective Follow-up on acute infectious encephalopathy: Patient was seen and examined.?She complained of pain in her knees, hip and left shoulder. No other acute events overnight. Objective Data Objective Data Vital Signs: Vital Signs Temp Pulse Resp BP Pulse Ox O2 Del Method 99.3 F H 69 16 162/60 H 96 Room Air 12/18/21 03:15 12/18/21 05:32 12/18/21 03:15 12/18/21 05:32 12/18/21 07:10 12/18/21 07:10 Oxygen Delivery Method Room Air Weight: 45.6 kg Body Mass Index (BMI) 17.8 Intake & Output: Intake and Output for Last 24 Hours 12/16/21 12/17/21 12/18/21 23:59 23:59 23:59 Intake Total 2978.75 / 2978.75 2053.75 / 2053.75 927.5 / 927.5 Output Total 250 / 250 1400 / 1950 800 / 800 Balance 2728.75 / 2728.75 653.75 / 103.75 127.5 / 127.5 Medical Nutrition Assessment Dietitian: Malnutrition Criteria Met Start: 12/16/21 13:08 Freq: Status: Active Protocol: Document 12/16/21 13:09 (Rec: 12/16/21 13:09 [id number]) Nutrition Malnutrition Evidence of Malnutrition Exists Yes Malnutrition (severe): Acute Illness/Injury Evidenced By Suboptimal Energy Intake ( Severe),Weight Loss (Severe), Physical Changes (Mild) Clinical Problem Acute Disease or Injury Related Malnutrition Etiology severe, acute malnutrition related to altered mental status Signs/Symptoms as evidenced by unintentional wt loss of 9.5#/8.6%; estimated PO intake meeting < 50% of estimated energy needs x 5 days; mild muscle wasting/ fat loss in upper extremities, temporal, orbital, and clavicle areas per physical exam; BMI 17.8 Status Active Problem Recommendation Dietitian Recommendations/Changes regular diet given evidence of malnutrition; ensure enlive 120mL 4x/day w/ medpass for additional calories/protein if consumed. Lab / Micro Data Result Diagrams: 12/18/21 06:40 12/18/21 06:40 Labs: Laboratory Results - last 24 hr 12/17/21 06:00: Sodium 141, Potassium 3.9, Chloride 115 H, Carbon Dioxide 18.0 L , Anion Gap 8, BUN 17, Creatinine 0.87, Estim Creat Clear Calc 37.13, Est GFR (MDRD) Af Amer 80, Est GFR (MDRD) Non-Af 66, BUN/Creatinine Ratio 19.5, Glucose 121 H, Calcium 8.4 L, Total Bilirubin 0.20, AST 31, ALT 8 L, Alkaline Phosp hatase 76, Total Protein 6.0 L, Albumin 2.7 L, Globulin 3.3, Albumin/Globulin Ratio 0.8 L 12/18/21 06:40: WBC 8.4, RBC 3.23 L, Hgb 10.0 L, Hct 30.3 L, MCV 93.8, MCH 31.0, MCHC 33.0, RDW Std Deviation 47.1 H, RDW Coeff of Linda 13.9, Plt Count 274, MPV 9.3, Immature Gran % (Auto) 0.500, Neut % (Auto) 47.7, Lymph % (Auto) 40.3, [place] % (Auto) 7.2, Eos % (Auto) 3.9, Baso % (Auto) 0.4, Absolute Neuts (auto) 4.0, Absolute Lymphs (auto) 3.37, Nucleated RBC % 0 12/18/21 06:40: Sodium 143, Potassium 3.7, Chloride 115 H, Carbon Dioxide 23.0, Anion Gap 5, BUN 12, Creatinine 0.77, Estim Creat Clear Calc 32.30, Est GFR (MDRD) Af Amer 92, Est GFR (MDRD) Non-Af 76, BUN/Creatinine Ratio 15.5, Glucose 115 H, Calcium 8.1 L, Total Bilirubin 0.20, AST 21, ALT 9 L, Alkaline Phosphatase 69, Total Protein 5.4 L, Albumin 2.4 L, Globulin 3.0, Albumin/Globulin Ratio 0.8 L Micro: Microbiology 12/15/21 22:30 Urine, Catheterized Urine Culture - Final Culture exhibits no growth. Physical Exam Narrative Physical exam: General: Alert, Oriented x3, Cooperative, cachectic, frail HEENT: Atraumatic Oral: Moist Mucosa Neck: Supple Lungs: Diminished to auscultation Cardiovascular: HS I+II, regular, no murmurs Abdomen: Bowel Sounds Present, Soft, Non Tender Extremities: No edema Skin: No rashes, No breakdown Neurological: Grossly intact Psych/Mental Status: Appropriate Assessment & Plan Assessment/Plan (1) Encephalopathy acute: (2) Acute UTI: (3) Addis infection: PLAN: Plan 1. Acute infectious encephalopathy secondary to acute UTI,resolved [facility] is a [facility], history of recurrent UTI, recent urine cultures grew MRSA, Proteus(see chart for penitentiary urine culture results) Patient was receiving Invanz and Bactrim prior to admission Repeat urine cultures show no growth, on IV ceftriaxone ID consult 2. JAVED on CKD stage IIIa, resolved, Creatinine is currently 0.77, admitting creatinine was 1.89 3. Severe protein calorie malnutrition, nutrition consulted, continue on supplement 4. Candidal intertriginous infection, continue nystatin powder 5. Parkinson's disease, continue on Sinemet 6. DVT PPx- Heparin SC Charges/Coding Visit Charges Inpatient E&M: 28563 Subs Hosp L2
[2021-12-18] MEDS: Vancomycin IV 500 MG/100 ML BAG 100 MG IV (08:18)
[2021-12-18] MEDS: Carbidopa/Levodopa 25/100 Tablet PO ×4 (08:20→22:23)
[2021-12-18] MEDS: Multivitamins,Therapeutic Tablet 1 TABLET PO (08:20)
[2021-12-18] MEDS: Aspirin E.C. 81 MG Tablet PO (08:26)
[2021-12-18] MEDS: Heparin Injection (Vial) 5,000 UNIT/ML VIAL 5000 UNIT SC ×2 (08:26→22:26)
[2021-12-18] MEDS: 0.9% Saline Lock 10 ML Syringe IV ×2 (08:54→12:11)
[2021-12-18] MEDS: Saliva Substitute 237 ML BOTTLE 15 ML MUCOUS MEM ×2 (12:09→22:24)
[2021-12-18] MEDS: Ketorolac 15 MG/ML Vial IV (12:10)
[2021-12-18] MEDS: Famotidine 200 MG/20 ML MDV 20 MG in 0.9% Normal Saline (Pres. free 8 ML 300 MG IV (12:10)
[2021-12-18] MEDS: hydrALAZINE 20 MG/ML Vial 5 MG IV (12:14)
[2021-12-18] MEDS: Acetaminophen 500 MG Tablet 1000 MG PO ×2 (15:57→22:24)
--- NOTE | 2021-12-18 18:59 | NURSING ---
Pt has a purewick. voided 150cc earlier today but nothing since. Bladder scanned just now for greater then 408. Will notify Dr. De Jesus.
[2021-12-18] MEDS: oxyCODONE 5 MG Tablet PO (20:04)
--- NOTE | 2021-12-18 20:09 | NURSING ---
Straight cathed per physican order d/t urinary retention, voided 150 ml over 12 hour period. Very difficult cath, area is red and swollen, was able to drain 400 ml or cloudy purulant looking urine. Procedure was well tolerated.
[2021-12-18] MEDS: Mirtazapine 15 MG Tablet 22.5 MG PO (22:24)
[2021-12-19 03:57] VITALS: BP 152/66; PULSE 70; RESP 16; TEMP 37.2; O2SAT 98
[2021-12-19] MEDS: Acetaminophen 500 MG Tablet 1000 MG PO ×3 (05:59→21:30)
[2021-12-19] MEDS: Menthol/Lanolin/Calamine/Znox 113 GM Tube 1 APPLIC TOPICAL ×3 (06:01→20:11)
[2021-12-19] MEDS: Nystatin Powder 15gm Bottle 1 APPLIC TOPICAL ×3 (06:02→20:11)
[2021-12-19 07:56] VITALS: BP 110/83; PULSE 72; RESP 16; TEMP 36.9; O2SAT 98
[2021-12-19] MEDS: Vancomycin IV 500 MG/100 ML BAG 100 MG IV (08:06)
[2021-12-19] MEDS: Saliva Substitute 237 ML BOTTLE 15 ML MUCOUS MEM (08:08)
[2021-12-19] MEDS: Polyethylene Glycol 3350 17 GM PACKET PO (08:09)
[2021-12-19] MEDS: Carbidopa/Levodopa 25/100 Tablet PO ×4 (08:10→20:13)
[2021-12-19] MEDS: Heparin Injection (Vial) 5,000 UNIT/ML VIAL 5000 UNIT SC ×2 (08:10→20:13)
[2021-12-19] MEDS: Multivitamins,Therapeutic Tablet 1 TABLET PO (08:10)
[2021-12-19] MEDS: Aspirin E.C. 81 MG Tablet PO (08:10)
--- NOTE | 2021-12-19 08:13 | PCM.PN.HOSP ---
Subjective Subjective Patient is an 80-year-old lady admitted with altered mental status diagnosed with acute infectious encephalopathy secondary to UTI Objective Data Objective Data Vital Signs: Vital Signs Temp Pulse Resp BP Pulse Ox O2 Del Method 98.5 F 72 16 110/83 H 98 Room Air 12/19/21 07:56 12/19/21 07:56 12/19/21 07:56 12/19/21 07:56 12/19/21 07:56 12/19/21 07:56 Oxygen Delivery Method Room Air Weight: 45.6 kg Body Mass Index (BMI) 17.8 Intake & Output: Intake and Output for Last 24 Hours 12/17/21 12/18/21 12/19/21 23:59 23:59 23:59 Intake Total 2053.75 / 2053.75 1636.50 / 1636.50 150 / 150 Output Total 1400 / 1950 1350 / 1350 125 / 125 Balance 653.75 / 103.75 286.50 / 286.50 25 / 25 Medical Nutrition Assessment Dietitian: Malnutrition Criteria Met Start: 12/16/21 13:08 Freq: Status: Active Protocol: Document 12/16/21 13:09 (Rec: 12/16/21 13:09 [id number]) Nutrition Malnutrition Evidence of Malnutrition Exists Yes Malnutrition (severe): Acute Illness/Injury Evidenced By Suboptimal Energy Intake ( Severe),Weight Loss (Severe), Physical Changes (Mild) Clinical Problem Acute Disease or Injury Related Malnutrition Etiology severe, acute malnutrition related to altered mental status Signs/Symptoms as evidenced by unintentional wt loss of 9.5#/8.6%; estimated PO intake meeting < 50% of estimated energy needs x 5 days; mild muscle wasting/ fat loss in upper extremities, temporal, orbital, and clavicle areas per physical exam; BMI 17.8 Status Active Problem Recommendation Dietitian Recommendations/Changes regular diet given evidence of malnutrition; ensure enlive 120mL 4x/day w/ medpass for additional calories/protein if consumed. Lab / Micro Data Result Diagrams: 12/18/21 06:40 12/18/21 06:40 Micro: Microbiology 12/15/21 22:30 Urine, Catheterized Urine Culture - Final Culture exhibits no growth. Physical Exam Narrative GENERAL: cooperative HEENT: Atraumatic; EYES; Anicteric, Normal Conjunctiva NECK; supple, normal thyroid, RESPIRATORY: Diminished to auscultation CARDIOVASCULAR: Regular S1 S2, GI: soft, normoactive bowel sounds, : No Renal angle tenderness; EXTREMITIES: Edema of both upper extremities with some contractures MUSCULOSKELETAL: no muscle wasting NEURO: Awake; no lateralizing signs. SKIN: No Rash PSYCH; Flat affect Assessment & Plan Assessment/Plan (1) Encephalopathy acute: (2) Acute UTI: (3) Addis infection: PLAN: Plan Patient is an 80-year-old lady admitted with altered mental status diagnosed with acute infectious encephalopathy secondary to UTI 1. Acute metabolic encephalopathy ? Secondary to UTI encephalopathy has resolved. She had recent urine cultures at a residential facility which grew MRSA and Proteus. Patient was managed with Bactrim and Invanz prior to her admission. Was treated with Rocephin 2. Acute kidney injury ? Creatinine on admission was 1.89 down to 0.77 with administration of IV fluids 3. Severe protein calorie malnutrition -, nutrition consulted, continue on supplement 4. Candidal intertriginous infection continue nystatin powder 5. Parkinson's disease - continue on Sinemet 6. DVT prophylaxis ? SC heparin Charges/Coding Visit Charges Inpatient E&M: 32309 Subs Hosp L2
[2021-12-19 08:31] LABS: Vancomycin, Trough Level 11.2 ug/mL (5.0-15.0)
[2021-12-19] MEDS: Furosemide 100 MG/10 ML Vial 60 MG IV (09:32)
[2021-12-19] MEDS: 0.9% Saline Lock 10 ML Syringe IV (09:32)
[2021-12-19] MEDS: Famotidine 200 MG/20 ML MDV 20 MG in 0.9% Normal Saline (Pres. free 8 ML 300 MG IV (09:35)
--- NOTE | 2021-12-19 10:35 | CASEMGMT ---
Discharge Ladle Operator Charlene Mixon/wyatt Crane Ladle Person faxed over updates on patient to Dick Buchanan. Charlene Ca Discharge Ladle Operator
[2021-12-19 11:21] VITALS: BP 133/48; PULSE 73; RESP 16; TEMP 36.6; O2SAT 100
--- NOTE | 2021-12-19 13:30 | CON.PCM.ID_ITS ---
Assessment & Plan Assessment/Plan (1) Acute UTI: PLAN: Reviewed ECF records. Ucx with mixed gerard, only 10-50k mrsa. No bcx sent. On vanc/ceftriaxone here. Had been on bactrim at [facility] which was likely cause of JAVED and encephalopathy. Ucx neg here, no fever, wbc quickly normalized here, clinically doing well. Will stop abx at this point, ok for back to ECF from ID perspective. Will follow as needed, thank you, d/w nursing (2) Encephalopathy acute: HPI Consult Data Date of Consult: 12/19/21 HPI Narrative Reason for Consultation: uti HPI Narrative: KEYSHAWN CERVANTES, is a 80 F who presented from [facility] with confusion, JAVED. Ucx 12/02 showed mixed gerard, including proteus, providencia, and small amount of MRSA and ecoli. Started on 7 day course of bactrim. Admitted to [facility], on vanc/ceftriaxone here, feeling better, denies fever/abd pain/dysuria. Full ROS performed and neg except as noted above. 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 Constipation COVID-19 Depression Essential hypertension Gastro-esophageal reflux disease without esophagitis Hyperlipemia Parkinson disease Rheumatoid arthritis Home Medications acetaminophen 325 mg tablet (Tylenol) 650 mg PO Q4H PRN Pain 12/15/21 [History Last Taken Unknown] aspirin 81 mg tablet 81 mg PO DAILY heart health 12/15/21 [History Last Taken Unknown] bisacodyl 5 mg rectal suppository 5 mg [place] DAILY PRN Constipation 12/15/21 [History Last Taken Unknown] carbidopa 25 mg-levodopa 100 mg tablet 0.5 tab PO QHS parkinson's 12/15/21 [History Last Taken Unknown] carbidopa 25 mg-levodopa 100 mg tablet 1 tab PO 1300 parkinson's 12/15/21 [History Last Taken Unknown] dextromethorphan-guaifenesin 10 mg-100 mg/5 mL oral syrup 10 ml PO Q4H PRN Cough 12/15/21 [History Last Taken Unknown] famotidine 20 mg tablet (Pepcid) 20 mg PO QHS GERD 12/15/21 [History Last Taken Unknown] hydrocodone-acetaminophen 5-325mg 5mg-325mg 1 tab PO Q6H PRN Pain 12/15/21 [History Last Taken Unknown] mirtazapine 15 mg tablet 22.5 mg PO QHS depression 12/15/21 [History Last Taken Unknown] ondansetron HCl 4 mg tablet 4 mg PO Q4H PRN PRN Nausea 12/15/21 [History Last Taken Unknown] polyethylene glycol 3350 17 gram oral powder packet (Miralax) 17 g PO DAILY constipation 12/15/21 [History Last Taken Unknown] saliva substitute combo no.9 (Biotene Dry Mouth Oral Rinse) 15 ml mucous membrane BID dry mouth 12/15/21 [History Last Taken Unknown] sennosides 8.6 mg tablet (senna) 8.6 mg PO BID constipation 12/15/21 [History Last Taken Unknown] Lactobacillus acidophilus 1,000 mmu cells PO BID GERD 12/16/21 [History Last Taken Unknown] carbidopa 25 mg-levodopa 100 mg tablet 1 tab PO 1700 parkinson's 12/16/21 [History Last Taken Unknown] carbidopa 25 mg-levodopa 100 mg tablet 2 tab PO 0900 parkinsons 12/16/21 [History Last Taken Unknown] multivitamin 1 tab PO DAILY supplement 12/16/21 [History Last Taken Unknown] Allergy/AdvReac Type Severity Reaction Status Date / Time adhesive tape Allergy PT UNSURE Verified 12/15/21 21:06 OF REACTION nickel Allergy PT UNSURE Verified 12/15/21 21:06 OF REACTION Penicillins Allergy PT UNSURE Verified 12/15/21 21:06 OF REACTION Family History Other Hearing loss Rheumatoid arthritis Family History unable to obtain Surgical History H/O mastectomy History of ear surgery History of knee replacement Surgical History unable to obtain Social History housing: snf Smoking Status: Former smoker substance use type: unknown Physical Exam Const alert and no apparent distress Constitutional Narrative: oriented x1 General Appearance: cooperative Eyes PERRL and EOMs intact bilaterally Neck supple and No nodes Resp normal air movement and clear to auscultation bilaterally Cardio regular rate and regular rhythm GI soft to palpation, non-tender and non-distended Extremity no clubbing, cyanosis or edema Skin no rashes or lesions noted Neuro CN's II-XII intact bilaterally Medical Records Data Attestation: I reviewed the patient's medical records Medical Nutrition Assessment Dietitian: Malnutrition Criteria Met Start: 12/16/21 13:08 Freq: Status: Active Protocol: Document 12/16/21 13:09 (Rec: 12/16/21 13:09 [id number]) Nutrition Malnutrition Evidence of Malnutrition Exists Yes Malnutrition (severe): Acute Illness/Injury Evidenced By Suboptimal Energy Intake ( Severe),Weight Loss (Severe), Physical Changes (Mild) Clinical Problem Acute Disease or Injury Related Malnutrition Etiology severe, acute malnutrition related to altered mental status Signs/Symptoms as evidenced by unintentional wt loss of 9.5#/8.6%; estimated PO intake meeting < 50% of estimated energy needs x 5 days; mild muscle wasting/ fat loss in upper extremities, temporal, orbital, and clavicle areas per physical exam; BMI 17.8 Status Active Problem Recommendation Dietitian Recommendations/Changes regular diet given evidence of malnutrition; ensure enlive 120mL 4x/day w/ medpass for additional calories/protein if consumed. Lab / Micro Data Attestation: I reviewed the patient's lab results. Result Diagrams: 12/18/21 06:40 12/18/21 06:40 Labs: Laboratory Results - last 24 hr 12/19/21 07:41: Vancomycin Trough 11.2
[2021-12-19 14:59] VITALS: BP 144/69; PULSE 79; RESP 16; TEMP 36.5; O2SAT 100
[2021-12-19 20:10] VITALS: BP 167/82; PULSE 79
[2021-12-19] MEDS: oxyCODONE 5 MG Tablet PO (20:10)
[2021-12-19] MEDS: hydrALAZINE 20 MG/ML Vial 5 MG IV (20:10)
[2021-12-19] MEDS: Mirtazapine 15 MG Tablet 22.5 MG PO (20:12)
[2021-12-19 20:30] VITALS: BP 165/82; PULSE 79; RESP 18; TEMP 36.7; O2SAT 100
[2021-12-20 02:10] VITALS: BP 113/86; PULSE 68; RESP 16; TEMP 36.6; O2SAT 96
[2021-12-20] MEDS: Acetaminophen 500 MG Tablet 1000 MG PO ×2 (05:32→16:26)
[2021-12-20] MEDS: Nystatin Powder 15gm Bottle 1 APPLIC TOPICAL ×2 (05:33→16:24)
[2021-12-20] MEDS: Menthol/Lanolin/Calamine/Znox 113 GM Tube 1 APPLIC TOPICAL ×2 (05:33→16:24)
--- NOTE | 2021-12-20 07:41 | DS.PCM_ITS ---
Providers Date of Admission: 12/16/21 Primary Care Physician: Dr. Eve Iniguez MD Consultations 12/18/21 08:07 Consult: Infectious Disease Routine Consulting Provider: Zach Rawls Reason for Consult: Recurrent UTI EMERGENT Consult: No MD Notified: Yes Date Notified: 12/19/21 Time Notified: 07:49 Method of Notification: Answering Service Reason For Visit: acute encephalopathy Diagnosis Discharge Diagnosis (1) Acute UTI: Status: Acute Code(s): N39.0 - Urinary tract infection, site not specified (2) Encephalopathy acute: Status: Acute Code(s): G93.40 - Encephalopathy, unspecified Plan Patient is an 80-year-old lady admitted with altered mental status diagnosed with acute infectious encephalopathy secondary to UTI 1. Acute metabolic encephalopathy ? Secondary to UTI encephalopathy has resolved. She had recent urine cultures at a halfway facility which grew MRSA and Proteus. Patient was managed with Bactrim and Invanz prior to her admission. Was treated with Rocephin 2. Acute kidney injury ? Creatinine on admission was 1.89 down to 0.77 with administration of IV fluids 3. Severe protein calorie malnutrition -, nutrition consulted, continue on supplement 4. Candidal intertriginous infection continue nystatin powder 5. Parkinson's disease - continue on Sinemet 6. DVT prophylaxis ? SC heparin Medications at Discharge Home Medications acetaminophen 325 mg tablet (Tylenol) 650 mg PO Q4H PRN Pain 12/15/21 aspirin 81 mg tablet 81 mg PO DAILY heart health 12/15/21 bisacodyl 5 mg rectal suppository 5 mg [place] DAILY PRN Constipation 12/15/21 carbidopa 25 mg-levodopa 100 mg tablet 0.5 tab PO QHS parkinson's 12/15/21 carbidopa 25 mg-levodopa 100 mg tablet 1 tab PO 1300 parkinson's 12/15/21 dextromethorphan-guaifenesin 10 mg-100 mg/5 mL oral syrup 10 ml PO Q4H PRN Cough 12/15/21 famotidine 20 mg tablet (Pepcid) 20 mg PO QHS GERD 12/15/21 mirtazapine 15 mg tablet 22.5 mg PO QHS depression 12/15/21 ondansetron HCl 4 mg tablet 4 mg PO Q4H PRN PRN Nausea 12/15/21 polyethylene glycol 3350 17 gram oral powder packet (Miralax) 17 g PO DAILY constipation 12/15/21 saliva substitute combo no.9 (Biotene Dry Mouth Oral Rinse) 15 ml mucous membrane BID dry mouth 12/15/21 sennosides 8.6 mg tablet (senna) 8.6 mg PO BID constipation 12/15/21 Lactobacillus acidophilus 1,000 mmu cells PO BID GERD 12/16/21 carbidopa 25 mg-levodopa 100 mg tablet 1 tab PO 1700 parkinson's 12/16/21 carbidopa 25 mg-levodopa 100 mg tablet 2 tab PO 0900 parkinsons 12/16/21 multivitamin 1 tab PO DAILY supplement 12/16/21 food supplemt, lactose-reduced 0.08 gram-1.5 kcal/mL oral liquid (Ensure Enlive) 120 ml PO 4X/DAY #0 mL 12/20/21 furosemide 20 mg tablet (Lasix) 20 mg PO DAILY #1 TAB 12/20/21 hydrocodone-acetaminophen 5-325mg 5mg-325mg 1 tab PO Q6H PRN Pain 2 days #8 tabs 12/20/21 Hospital Course Summary of Care Provided Minutes Spent on Discharge: 35 Hospital Course: Patient is an 80-year-old lady admitted with altered mental status diagnosed with acute infectious encephalopathy secondary to UTI 1.? Acute metabolic encephalopathy ? Secondary to UTI encephalopathy has resolved.? She had recent urine cultures at a halfway facility which grew MRSA and Proteus.? Patient was managed with Bactrim and Invanz prior to her admission.? Was treated with Rocephin ? 12/20/2021; patient was seen in consultation by ID no further antibiotics was recommended 2.? Acute kidney injury ? Creatinine on admission was 1.89 down to 0.77 with administration of IV fluids 3. Severe protein calorie malnutrition -, nutrition consulted, continue on supplement 4. Candidal intertriginous infection ?continue nystatin powder 5. Parkinson's disease - continue on Sinemet 6. DVT prophylaxis ? SC heparin Physical Exam Narrative GENERAL: cooperative HEENT: Atraumatic; EYES; Anicteric, Normal Conjunctiva NECK; supple, normal thyroid, RESPIRATORY: Diminished to auscultation CARDIOVASCULAR: Regular S1 S2, GI: soft, normoactive bowel sounds, : No Renal angle tenderness; EXTREMITIES: Edema of both upper extremities with some contractures MUSCULOSKELETAL: no muscle wasting NEURO: Awake; no lateralizing signs. SKIN: No Rash PSYCH; Flat affect Medical Records Data Medical Nutrition Assessment Dietitian: Malnutrition Criteria Met Start: 12/16/21 13:08 Freq: Status: Active Protocol: Document 12/19/21 14:49 LO (Rec: 12/19/21 14:49 LO [id number]) Nutrition Malnutrition Evidence of Malnutrition Exists Yes Malnutrition (severe): Acute Illness/Injury Evidenced By Suboptimal Energy Intake ( Severe),Weight Loss (Severe), Physical Changes (Mild) Clinical Problem Acute Disease or Injury Related Malnutrition Etiology severe, acute malnutrition related to altered mental status Signs/Symptoms as evidenced by unintentional wt loss of 9.5#/8.6%; estimated PO intake meeting < 50% of estimated energy needs x 5 days; mild muscle wasting/ fat loss in upper extremities, temporal, orbital, and clavicle areas per physical exam; BMI 17.8 Status Active Problem Recommendation Dietitian Recommendations/Changes regular diet given evidence of malnutrition; ensure enlive 120mL 4x/day w/ medpass for additional calories/protein if consumed. Weight / BMI Weight Weight: 45.6 kg Body Mass Index (BMI) 17.8 ABG / Lab / Microbiology Data Result Diagrams: 12/18/21 06:40 12/18/21 06:40 Laboratory: Laboratory Results - last 24 hr 12/19/21 07:41: Vancomycin Trough 11.2 Microbiology: Microbiology 12/15/21 22:30 Urine, Catheterized Urine Culture - Final Culture exhibits no growth. D/C Instructions Discharge Diet: No restrictions Discharge Activity: Return to Normal Activity Call your doctor if you observe: Fever of 101 or Higher, Shortness of breath, Fainting spells and Chest pain Meaningful Use Info Meaningful Use Diagnoses (Choose all that apply): None applicable Discharge Plan Admission Admit Date/Time: 12/16/21 01:01 Attending Provider: Byron Martínez Primary Care Provider: Eve Iniguez Consulting Providers: Feng Worrell ; Giulia De Jesus ; Zach Rawls Discharge Orders/Prescriptions Prescriptions: New furosemide [Lasix] 20 mg tablet 20 mg PO DAILY Qty: 1 0RF Ensure Enlive 0.08 gram-1.5 kcal/mL Liquid 120 ml PO 4X/DAY Qty: 0 0RF Continued bisacodyl 5 mg Suppository 5 mg [place] DAILY PRN (Reason: Constipation) polyethylene glycol 3350 [Miralax] 17 gram Powder In Packet 17 g PO DAILY dextromethorphan-guaifenesin 10-100 mg/5 mL Syrup 10 ml PO Q4H PRN (Reason: Cough) famotidine [Pepcid] 20 mg Tablet 20 mg PO QHS aspirin 81 mg Tablet 81 mg PO DAILY mirtazapine 15 mg Tablet 22.5 mg PO QHS carbidopa-levodopa 25-100 mg Tablet 1 tab PO 1300 carbidopa-levodopa 25-100 mg Tablet 0.5 tab PO QHS Biotene Dry Mouth Oral Rinse Mouthwash 15 ml MUCOUS MEMBRANE BID Rx Instructions: swish for 15-30 secs , then spit out; do not swallow sennosides [senna] 8.6 mg Tablet 8.6 mg PO BID acetaminophen [Tylenol] 325 mg Tablet 650 mg PO Q4H PRN (Reason: Pain) ondansetron HCl 4 mg Tablet 4 mg PO Q4H PRN PRN (Reason: Nausea) multivitamin Tablet 1 tab PO DAILY Lactobacillus acidophilus Tablet 1,000 mmu cells PO BID carbidopa-levodopa 25-100 mg tablet 1 tab PO 1700 carbidopa-levodopa 25-100 mg tablet 2 tab PO 0900 hydrocodone-acetaminophen 5-325 mg Tablet 1 tab PO Q6H PRN (Reason: Pain) 2 Days Qty: 8 0RF Referrals / Follow Up: Eve Iniguez MD [Primary Care Provider] - In 1 Week Disposition Disposition (needs filled in before D/C Order can be placed): [facility] Charges/Coding Visit Charges Inpatient E&M: 08977 Disch Hosp
[2021-12-20 07:56] VITALS: BP 144/68; PULSE 71; RESP 16; TEMP 36.5; O2SAT 98
--- NOTE | 2021-12-20 08:53 | TREXTCAR_ITS ---
Diet Diet Order/Speech Therapy: 12/16/21 08:26 Diet: Regular - General Is pt able to select menu?: No Problem/Diagnosis (1) Acute UTI: Status: Acute Code(s): N39.0 - Urinary tract infection, site not specified (2) Encephalopathy acute: Status: Acute Code(s): G93.40 - Encephalopathy, unspecified Plan Patient is an 80-year-old lady admitted with altered mental status diagnosed with acute infectious encephalopathy secondary to UTI 1. Acute metabolic encephalopathy ? Secondary to UTI encephalopathy has resolved. She had recent urine cultures at a senior care facility which grew MRSA and Proteus. Patient was managed with Bactrim and Invanz prior to her admission. Was treated with Rocephin 2. Acute kidney injury ? Creatinine on admission was 1.89 down to 0.77 with administration of IV fluids 3. Severe protein calorie malnutrition -, nutrition consulted, continue on supplement 4. Candidal intertriginous infection continue nystatin powder 5. Parkinson's disease - continue on Sinemet 6. DVT prophylaxis ? SC heparin Allergies/Procedures Done in Hospital Allergies adhesive tape Allergy (Verified 12/15/21 21:06) PT UNSURE OF REACTION nickel Allergy (Verified 12/15/21 21:06) PT UNSURE OF REACTION Penicillins Allergy (Verified 12/15/21 21:06) PT UNSURE OF REACTION Type of Care/Length of Stay Estimated LOS: More Than 30 Days Type of Care Needed: Intermediate Rehab Potential: Good Prognosis: Good Additional Orders/Day of Discharge Day of Discharge: 12/20/21 Dietary and Speech Recommendations Dietitian Recommendations/Changes: regular diet given evidence of malnutrition; ensure enlive 120mL 4x/day w/ medpass for additional calories/protein if consumed. Discharge Plan Admission Admit Date/Time: 12/16/21 01:01 Attending Provider: Byron Martínez Primary Care Provider: Eve Iniguez Consulting Providers: Feng Worrell ; Giulia De Jesus ; Zach Rawls Discharge Orders/Prescriptions Prescriptions: New furosemide [Lasix] 20 mg tablet 20 mg PO DAILY Qty: 1 0RF Ensure Enlive 0.08 gram-1.5 kcal/mL Liquid 120 ml PO 4X/DAY Qty: 0 0RF Continued bisacodyl 5 mg Suppository 5 mg [place] DAILY PRN (Reason: Constipation) polyethylene glycol 3350 [Miralax] 17 gram Powder In Packet 17 g PO DAILY dextromethorphan-guaifenesin 10-100 mg/5 mL Syrup 10 ml PO Q4H PRN (Reason: Cough) famotidine [Pepcid] 20 mg Tablet 20 mg PO QHS aspirin 81 mg Tablet 81 mg PO DAILY mirtazapine 15 mg Tablet 22.5 mg PO QHS carbidopa-levodopa 25-100 mg Tablet 1 tab PO 1300 carbidopa-levodopa 25-100 mg Tablet 0.5 tab PO QHS Biotene Dry Mouth Oral Rinse Mouthwash 15 ml MUCOUS MEMBRANE BID Rx Instructions: swish for 15-30 secs , then spit out; do not swallow sennosides [senna] 8.6 mg Tablet 8.6 mg PO BID acetaminophen [Tylenol] 325 mg Tablet 650 mg PO Q4H PRN (Reason: Pain) ondansetron HCl 4 mg Tablet 4 mg PO Q4H PRN PRN (Reason: Nausea) multivitamin Tablet 1 tab PO DAILY Lactobacillus acidophilus Tablet 1,000 mmu cells PO BID carbidopa-levodopa 25-100 mg tablet 1 tab PO 1700 carbidopa-levodopa 25-100 mg tablet 2 tab PO 0900 hydrocodone-acetaminophen 5-325 mg Tablet 1 tab PO Q6H PRN (Reason: Pain) 2 Days Qty: 8 0RF Referrals / Follow Up: Eve Iniguez MD [Primary Care Provider] - In 1 Week Disposition Disposition (needs filled in before D/C Order can be placed): [facility]
[2021-12-20] MEDS: Multivitamins,Therapeutic Tablet 1 TABLET PO (09:09)
[2021-12-20] MEDS: Carbidopa/Levodopa 25/100 Tablet PO ×3 (09:09→16:24)
[2021-12-20] MEDS: Saliva Substitute 237 ML BOTTLE 15 ML MUCOUS MEM (09:09)
[2021-12-20] MEDS: Heparin Injection (Vial) 5,000 UNIT/ML VIAL 5000 UNIT SC (09:09)
[2021-12-20] MEDS: Aspirin E.C. 81 MG Tablet PO (09:09)
[2021-12-20] MEDS: Famotidine 20 MG Tablet PO (09:11)
--- NOTE | 2021-12-20 09:37 | PHA.DC.MR ---
Pharmacy Service has performed discharge medication reconciliation for this patient. The patient's discharge medication list was reviewed for discrepancies and discrepancies were resolved. Home Medications acetaminophen 325 mg tablet (Tylenol) 650 mg PO Q4H PRN Pain 12/15/21 aspirin 81 mg tablet 81 mg PO DAILY heart health 12/15/21 bisacodyl 5 mg rectal suppository 5 mg [place] DAILY PRN Constipation 12/15/21 carbidopa 25 mg-levodopa 100 mg tablet 0.5 tab PO QHS parkinson's 12/15/21 carbidopa 25 mg-levodopa 100 mg tablet 1 tab PO 1300 parkinson's 12/15/21 dextromethorphan-guaifenesin 10 mg-100 mg/5 mL oral syrup 10 ml PO Q4H PRN Cough 12/15/21 famotidine 20 mg tablet (Pepcid) 20 mg PO QHS GERD 12/15/21 mirtazapine 15 mg tablet 22.5 mg PO QHS depression 12/15/21 ondansetron HCl 4 mg tablet 4 mg PO Q4H PRN PRN Nausea 12/15/21 polyethylene glycol 3350 17 gram oral powder packet (Miralax) 17 g PO DAILY constipation 12/15/21 saliva substitute combo no.9 (Biotene Dry Mouth Oral Rinse) 15 ml mucous membrane BID dry mouth 12/15/21 sennosides 8.6 mg tablet (senna) 8.6 mg PO BID constipation 12/15/21 Lactobacillus acidophilus 1,000 mmu cells PO BID GERD 12/16/21 carbidopa 25 mg-levodopa 100 mg tablet 1 tab PO 1700 parkinson's 12/16/21 carbidopa 25 mg-levodopa 100 mg tablet 2 tab PO 0900 parkinsons 12/16/21 multivitamin 1 tab PO DAILY supplement 12/16/21 food supplemt, lactose-reduced 0.08 gram-1.5 kcal/mL oral liquid (Ensure Enlive) 120 ml PO 4X/DAY #0 mL 12/20/21 furosemide 20 mg tablet (Lasix) 20 mg PO DAILY #1 TAB 12/20/21 hydrocodone-acetaminophen 5-325mg 5mg-325mg 1 tab PO Q6H PRN Pain 2 days #8 tabs 12/20/21
--- NOTE | 2021-12-20 09:40 | CASEMGMT ---
Social Work Per physician pt is ready for discharge today. Pt to return to [facility] Intermediate Level of Care. 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 SW met with pt and she is agreeable to return to [facility] today. Phone call to pt radha Dasilva and updated on discharge plan. Phone call to Toña at [facility] and notified of discharge and pickup time. Plan: [facility], intermediate Level of Care. CHAIM Leblanc
[2021-12-20 16:31] VITALS: BP 132/62; PULSE 78; RESP 16; TEMP 36.8; O2SAT 98
== END 2021-12-20 16:45 | disposition skilled nursing facility (03) | DRG 689 ==
LOC: ED 12-16 00:58 → MS3 12-16 01:36
PROVIDERS: Internal Medicine; Admitting Provider Hospitalist; Emergency Provider Emergency Medicine; PCP Internal Medicine; Visit Provider Internal Medicine
DX: N39.0 Urinary tract infection, site not specified (principal); E43 Unspecified severe protein-calorie malnutrition; G93.41 Metabolic encephalopathy; N17.9 Acute kidney failure, unspecified; B37.49 Other urogenital candidiasis; Z68.1 Body mass index [BMI] 19.9 or less, adult; G20 Parkinson's disease; B37.3 Candidiasis of vulva and vagina; N18.31 Chronic kidney disease, stage 3a; M06.9 Rheumatoid arthritis, unspecified; I12.9 Hypertensive chronic kidney disease with stage 1 through stage 4 chronic kidney disease, or unspecified chronic kidney disease; E78.5 Hyperlipidemia, unspecified; K21.9 Gastro-esophageal reflux disease without esophagitis; Z86.16 Personal history of COVID-19; Z87.891 Personal history of nicotine dependence; Z79.82 Long term (current) use of aspirin; Z79.899 Other long term (current) drug therapy
CPT/HCPCS: 36415; 70450; 80048; 80053; 80202; 81001; 82140; 82607; 82962; 83735; 84100; 84439; 84443; 85025; 87086; 87426; 99285; J7030; J7040; J7050; P9612; A4216; J0696; J1940; J3490